=== PATIENT | female | born 1995 | race Caucasian/White ===

== ENCOUNTER 2024-12-04 08:44 | Emergency (ER) | payer MEDICAID ==
[~2024-12-04] VITALS: Ht 152.4 cm; Wt 81.0 kg
[2024-12-04 08:48] VITALS: TEMP 99.3
[2024-12-04] MEDS: normal saline 1000ML IV soln IVB ONE (09:35)
[2024-12-04] MEDS: ketorolac trometh 30MG/ML vial 30 MG/ML VIAL IM ONE (09:38)
[2024-12-04] MEDS: diphenhydrAMINE 50 mg/ml inj IV ONE (10:32)
[2024-12-04] MEDS: metoclopramide 5 mg/ml inj IV ONE (10:32)
[2024-12-04 11:20] VITALS: BP 103/75; PULSE 65; RESP 16; O2SAT 100
== END 2024-12-04 11:22 | disposition home or self-care (01) ==
LOC: ER 08:45
DX: G43.909 Migraine, unspecified, not intractable, without status migrainosus (principal)
CPT/HCPCS: 96361; 96372; 96374; 96375; 99284; J1200; J1885; J2765; J7030